=== PATIENT | female | born 1965 | race Caucasian/White ===

== ENCOUNTER 2021-03-21 14:27 | Outpatient (CLI) | payer OTHER ==
--- NOTE | 2021-03-24 16:55 | XRAY Report ---
PROCEDURE: Foot 3 View RT INDICATIONS: MULTIPLE INJURIES BL FEET L ANKLE TECHNIQUE: 2 views of the foot were acquired. COMPARISON: None FINDINGS: Bones: No fractures or dislocations. No suspicious bony lesions. Mild hallux valgus alignment and medial bunion. Mild first MTP and diffuse interphalangeal joint space narrowing with periarticular os teophyte formation. Prominent plantar calcaneal enthesophyte. Soft tissues: No tibiotalar joint effusion. Achilles tendon appears normal. IMPRESSION: 1. Hallux valgus alignment and medial bunion. 2. 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 3. Calcaneal enthesopathy. Reviewed by: CHRIS Fang on 03/24/2021 4:54 PM PDT Approved by: Mariza Kim MD, PhD on 03/24/2021 4:54 PM PDT Station ID: [id number]
--- NOTE | 2021-03-24 16:55 | XRAY Report ---
PROCEDURE: Ankle 3 View LT INDICATIONS: MULTIPLE INJURIES BL FEET L ANKLE TECHNIQUE: 2 views of the ankle were acquired. COMPARISON: None FINDINGS: Bones: No acute fractures or dislocations. Smooth, well-corticated osseous densities adjacent to the tip of the medial malleolus. Prominent plantar calcaneal enthesophyte. Ankle mortise is normally ali gned. No suspicious bony lesions. Soft tissues: No tibiotalar joint effusion. Achilles tendon appears normal. IMPRESSION: 1. Well-corticated osseous density adjacent to the tip of the medial malleolus suggestive of remote i njury and no acute bony abnormality seen. 2.. Calcaneal enthesopathy. Reviewed by: CHRIS Fang on 03/24/2021 4:54 PM PDT Approved by: Mariza Kim MD, PhD on 03/24/2021 4:54 PM PDT Station ID: [id number]
== END 2021-03-21 14:28 | disposition home or self-care (01) ==
LOC: DI 14:27
PROVIDERS: ATTEND Podiatrist
DX: S99.921A Unspecified injury of right foot, initial encounter (principal); S99.922A Unspecified injury of left foot, initial encounter; S99.912A Unspecified injury of left ankle, initial encounter; M77.32 Calcaneal spur, left foot; M77.31 Calcaneal spur, right foot; M20.11 Hallux valgus (acquired), right foot; M21.611 Bunion of right foot

== ENCOUNTER 2021-04-09 14:29 | Outpatient (CLI) | payer OTHER ==
--- NOTE | 2021-04-09 16:49 | MRI Report ---
PROCEDURE: Ankle LT W/O INDICATIONS: LEFT ANKLE PAIN TECHNIQUE: Noncontrast sagittal T1 spin echo and T2 fast spin echo with fat saturation, axial proton density fas t spin echo and T2 fast spin echo with fat saturation, coronal T1 spin echo and T2 fast spin echo wit h fat saturation through the ankle/hindfoot. COMPARISON: None. Findings: Some images are degraded by motion artifact. Bones: Small patchy focus of T2 hyperintense signal is seen in the mid aspect, distal tibia, which m ay reflect contusion (series 1001, image 19). A small focus of T2 hyperintense signal seen in the lat eral aspect of the medial cuneiform, which may reflect fibrocystic change. MUSCLES: No evidence of muscular atrophy. T2 hyperintense signal is seen underlying the calcaneus, wh ich exhibits mass effect upon the abductor digiti minimi. An additional area of T2 hyperintense signa l is seen underlying the extensor hallux longus (series 701, image 20). Anterior tibiofibular ligament: Intact. Posterior tibiofibular ligament: Intact. Calcaneofibular ligament: Intact. Talar dome: No significant abnormality. Anterior talofibular ligament: Intact. Posterior talofibular ligament: Intact. Deltoid ligament: Intact. Peroneal tendons: No evidence of tear or tenosynovitis. Tibialis posterior: No evidence of tear. Fluid signal nearly surrounds the tendon (series 701, image 29), which may reflect tenosynovitis. Flexor digitorum: No evidence of tear or tenosynovitis. Flexor hallucis longus: Fluid signal surrounds the tendon, compatible tenosynovitis. Sinus Tarsi: T2 hyperintense/T1 hypointense signal is seen, which may reflect edema. Achilles tendon: Intact. Joint effusion: Small tibiotalar joint effusion. Plantar fascia: No evidence of tear or inflammation. IMPRESSION: 1. Patchy focus of edema in the mid aspect of the distal tibia, which may reflect contusion. 2. Tenosynovitis of the flexor hallucis longus and tibialis posterior. 3. Small osteochondral injury in the lateral aspect of the talar dome. 4. Edema within the sinus Tarsi. 5. Small tibiotalar joint effusion. 6. Fluid signal underlying the calcaneus, which may exhibit mass effect upon the abductor digiti mini mi. 7. Fluid signal in the expected location of the extensor hallucis longus, which may reflect musculote ndinous injury. Reviewed by: Manish Pino MD on 04/09/2021 4:47 PM PDT Approved by: Manish Pino MD on 04/09/2021 4:47 PM PDT Station ID: [id number]
== END 2021-04-09 14:30 | disposition home or self-care (01) ==
LOC: DI 14:29
PROVIDERS: ATTEND Podiatrist
DX: M65.9 Synovitis and tenosynovitis, unspecified (principal); M25.462 Effusion, left knee; R93.6 Abnormal findings on diagnostic imaging of limbs

== ENCOUNTER 2023-03-17 14:01 | Outpatient (CLI) | payer OTHER ==
--- NOTE | 2023-03-19 10:31 | Mammography Report ---
BILATERAL DIGITAL SCREENING MAMMOGRAM 3D/2D WITH AUGMENTATION: 03/17/2023 CLINICAL: Routine screening. No prior exams were available for comparison. There are scattered areas of fibroglandular density in both breasts (category b / 25%-50% glandular t issue). Bilateral breast implants are intact. No significant masses, calcifications, or other findings are seen in either breast. IMPRESSION: NEGATIVE There is no mammographic evidence of malignancy. A 1 year screening mammogram is recommended. Based on the Tyrer Cuzick model (a risk assessment model) the patients lifetime risk is 7.6% and her 10 year risk is 2.9%. According to the ACR, ACS, and NCCN guidelines, an annual breast MRI exam preethi g with mammogram is recommended if the patients lifetime risk is 20% or greater. This exam was interpreted at Station ID: [id number]. NOTE: For mammograms, a report in lay terms will be sent to the patient. Approximately 15% of breast malignancies will not be visualized mammographically. In the management of a palpable breast mass, a negative mammogram must not discourage biopsy of a clinically suspicious lesion. Electronically Signed By: Lakshmi keene/tanvi:03/18/2023 10:36:11 letter sent: No_Letter ACR BI-RADS Category 1: Negative 3341F PARENCHYMAL PATTERN: (A) - The breast(s) demonstrate(s) scattered fibroglandular densities. BI-RADS CATEGORY: (1) - 1 Mammogram [id number] 1 year screening LATERALITY: (B)
== END 2023-03-17 14:02 | disposition home or self-care (01) ==
LOC: DI 14:01
PROVIDERS: ATTEND Student in an Organized Health Care Education/Training Program
DX: Z12.31 Encounter for screening mammogram for malignant neoplasm of breast (principal); Z98.82 Breast implant status